=== PATIENT | female | born 1995 ===

== ENCOUNTER 2016-10-05 18:36 | Emergency (ER) | payer MEDICAID ==
[2016-10-05 18:51] VITALS: BP 136/89; PULSE 68; RESP 15; TEMP 98.3; O2SAT 100; BMI 24.5
--- NOTE | 2016-10-05 18:59 | ED PDOC ---
Arrival/HPI - General Chief Complaint: Dental Pain Time Seen by Provider: 10/05/16 18:52 Historian: Patient - History of Present Illness Narrative History of Present Illness (Text): 10/05/16 18:59 This 21 yo female presents to this ED c/o right lower tooth ache x 3 days, and right ear pain x 2 days. Patient stated she has an appointment to see dentist next week. Denies fever, sob, cp, facial rash, sore throat, OATES, dizziness, n/v , or dizziness. Time/Duration: Other (3 days) Quality: Aching Context: Home Past Medical History - Provider Review Nursing Documentation Reviewed: Yes - Infectious Disease Hx of Infectious Diseases: None - Tetanus Immunization Tetanus Immunization: Unknown - Cardiac Hx Cardiac Disorders: No - Pulmonary Hx Respiratory Disorders: No - Neurological Hx Neurological Disorder: No - HEENT Hx HEENT Disorder: No - Renal Hx Renal Disorder: No - Endocrine/Metabolic Hx Endocrine Disorders: No - Hematological/Oncological Hx Blood Disorders: No - Integumentary Hx Dermatological Disorder: No - Musculoskeletal/Rheumatological Hx Musculoskeletal Disorders: Yes (scoliosis) - Gastrointestinal Hx Gastrointestinal Disorders: No - Genitourinary/Gynecological Hx Genitourinary Disorders: No - Psychiatric Hx Psychophysiologic Disorder: No Hx Anxiety: No Hx Substance Use: No - Anesthesia Hx Anesthesia: No Hx Anesthesia Reactions: No Hx Malignant Hyperthermia: No Family/Social History - Physician Review Nursing Documentation Reviewed: Yes Family/Social History: No Known Family HX Smoking Status: Heavy Smoker > 10 Cigarettes Daily Hx Alcohol Use: No Hx Substance Use: No Allergies/Home Meds Allergies/Adverse Reactions: Allergies No Known Allergies Allergy (Verified 10/05/16 18:50) Review of Systems - Review of Systems Constitutional: Normal. absent: Fatigue, Weight Change, Fevers Eyes: Normal ENT: Other (Dental pain, and right ear pain) Respiratory: Normal Cardiovascular: Normal Gastrointestinal: Normal Genitourinary Female: Normal Musculoskeletal: Normal Skin: Normal Neurological: Normal Endocrine: Normal Hemo/Lymphatic: Normal Psychiatric: Normal Physical Exam Vital Signs Temp Pulse Resp BP Pulse Ox 10/05/16 18:51 98.3 F 68 15 136/89 100 Temperature: Afebrile Blood Pressure: Normal Pulse: Regular Respiratory Rate: Normal Appearance: Positive for: Well-Appearing, Non-Toxic, Comfortable Pain Distress: None Mental Status: Positive for: Alert and Oriented X 3 - Systems Exam Head: Present: Atraumatic, Normocephalic Pupils: Present: PERRL Extroacular Muscles: Present: EOMI Conjunctiva: Present: Normal Ears: Present: Normal Canal, Other ((+) right cerumen impaction). No: Erythema , TM Bulging, TM Perf Mouth: Present: Moist Mucous Membranes, Normal Lips, Normal Tounge. No: Drooling, Normal Teeth (dental caries with gum swelling on tooth #30. No dental abscess visualized. No facial erythema) Pharnyx: Present: Normal. No: ERYTHEMA, EXUDATE, TONSILS ENLARGED Neck: Present: Normal Range of Motion Respiratory/Chest: Present: Clear to Auscultation, Good Air Exchange. No: Respiratory Distress, Accessory Muscle Use Cardiovascular: Present: Regular Rate and Rhythm, Normal S1, S2. No: Murmurs Back: Present: Normal Inspection. No: CVA Tenderness Upper Extremity: Present: Normal Inspection, Normal ROM, NORMAL PULSES, Neurovascularly Intact, Capillary Refill < 2s. No: Cyanosis, Edema Lower Extremity: Present: Normal Inspection, NORMAL PULSES, Normal ROM. No: Edema Neurological: Present: GCS=15, CN II-XII Intact, Speech Normal, Motor Func Grossly Intact, Normal Sensory Function, Normal Cerebellar Funct, Norm Deep Tendon Reflexes, Gait Normal, Memory Normal Skin: Present: Warm, Dry, Normal Color. No: Rashes Psychiatric: Present: Alert, Oriented x 3 Medical Decision Making ED Course and Treatment: 10/05/16 20:07 Re-evaluation. Patient feels better. Discussed results and plan with patient who expresses understanding. All questions answered and there is agreement with the plan to discharge home with instructions. Patient stable for discharge. Return if symptoms persist or worsen. Re-evaluation Time: 20:07 Reassessment Condition: Re-examined, Improved - Medication Orders Current Medication Orders: Discontinued Medications Amoxicillin (Amoxil 500 Mg Cap) 500 mg PO STAT STA PRN Reason: Protocol Stop: 10/05/16 19:36 Last Admin: 10/05/16 19:54 Dose: 500 MG Ibuprofen (Motrin Tab) 600 mg PO STAT STA Stop: 10/05/16 19:37 Last Admin: 10/05/16 19:54 Dose: 600 MG MAR Pain/Vitals Document 10/05/16 19:54 RD (Rec: 10/05/16 19:54 RD [id number]) Pain Reassessment Is This A Pain ReAssessment? No Sleep Is patient sleeping during reassessment? No Presence of Pain Presence of Pain Yes - Procedure PROCEDURE NOTE (Text): 10/05/16 20:00 PROCEDURE: CERUMEN REMOVAL Performed by the emergency provider Timeout: A timeout to verify the correct patient, procedure, and site was performed immediately prior to the procedure. Indication: Cerumen impaction Procedure: The cerumen was removed using curette / 100 CC's of warmth NS mixed with Peroxide. Post-procedure: Patient tolerated the procedure well with no immediate complications. The cerumen was removed and TM was visualized. There was no bleeding. Disposition/Present on Arrival - Present on Arrival Any Indicators Present on Arrival: No History of DVT/PE: No History of Uncontrolled Diabetes: No Urinary Catheter: No History of Decub. Ulcer: No History Surgical Site Infection Following: None - Disposition Have Diagnosis and Disposition been Completed?: Yes Diagnosis: Cerumen impaction, Pain due to dental caries Disposition: HOME/ ROUTINE Disposition Time: 20:08 Patient Plan: Discharge Condition: GOOD Discharge Instructions (ExitCare): Dental Caries (ED), Toothache (ED), Cerumen Impaction (ED) Additional Instructions: Call private dentist for follow up visit and for removal of dental caries. Take medication as instructed. Do not use Q-tips. Return nto emergency if pain worsen. Prescriptions: Amoxicillin [Amoxil 500 mg Cap] 500 mg PO TID #20 cap Ibuprofen [Motrin] 600 mg PO Q8 PRN #20 tab PRN Reason: Pain, Severe (8-10) Chlorhexidine 0.12% [Peridex] 15 ml PO BID #1 bottle Forms: WORK NOTE
== END 2016-10-05 20:16 | disposition home or self-care (01) ==
LOC: ED 18:36
DX: K02.9 Dental caries, unspecified (principal); K08.89 Other specified disorders of teeth and supporting structures; H61.21 Impacted cerumen, right ear

== ENCOUNTER 2018-01-20 11:35 | Emergency (ER) | payer MEDICAID, OTHER ==
[2018-01-20 12:08] VITALS: TEMP 98.5; BMI 18.1
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
--- NOTE | 2018-01-20 14:07 | RAD ---
PROCEDURE: Right Hand Radiographs. HISTORY: jammed finger, swelling, COMPARISON: None. FINDINGS: BONES: There is a comminuted fracture of the distal aspect of the 4th middle phalanx extending into the articular surface. JOINTS: Normal. No osteoarthritic changes. SOFT TISSUES: Normal. OTHER FINDINGS: None. IMPRESSION: There is a comminuted fracture of the distal aspect of the 4th middle phalanx extending into the articular surface.
[2018-01-20 15:23] VITALS: BP 125/58; PULSE 89; RESP 18; O2SAT 100
== END 2018-01-20 13:30 | disposition home or self-care (01) ==
LOC: ED 11:35
DX: S62.624A Displaced fracture of middle phalanx of right ring finger, initial encounter for closed fracture (principal); Y04.0XXA Assault by unarmed brawl or fight, initial encounter; Y92.9 Unspecified place or not applicable

== ENCOUNTER 2018-09-25 21:29 | Emergency (ER) | payer MEDICAID, OTHER ==
[2018-09-25 21:29] VITALS: BMI 18.1
[2018-09-25 22:03] VITALS: BP 121/71; PULSE 65; RESP 18; TEMP 98; O2SAT 100
--- NOTE | 2018-09-26 03:31 | ED PDOC ---
Arrival/HPI - General Chief Complaint: Eye Problem Time Seen by Provider: 09/25/18 22:03 Historian: Patient - History of Present Illness Narrative History of Present Illness (Text): 23 y/o female with no significant PMH presents to the ED c/o right eye discomfort since 2 hours [employer]. Pt was walking outside when she experienced a sudden onset of FB sensation after she felt something blow into her eye. She has tried visine eye drops without relief. Associated conjunctival injection, photophobia, and increased tearing. Pt does not wear contact lenses or glasses. Denies fever, chills, vision changes, dizziness, headache, neck pain/stiffness, nausea, vomiting, or any other associated symptoms. Past Medical History - Provider Review Nursing Documentation Reviewed: Yes - Infectious Disease Hx of Infectious Diseases: None - Tetanus Immunization Tetanus Immunization: Unknown - Cardiac Hx Cardiac Disorders: No - Pulmonary Hx Respiratory Disorders: No - Neurological Hx Neurological Disorder: No - HEENT Hx HEENT Disorder: No - Renal Hx Renal Disorder: No - Endocrine/Metabolic Hx Endocrine Disorders: No - Hematological/Oncological Hx Blood Disorders: No - Integumentary Hx Dermatological Disorder: No - Musculoskeletal/Rheumatological Hx Musculoskeletal Disorders: Yes (scoliosis) - Gastrointestinal Hx Gastrointestinal Disorders: No - Genitourinary/Gynecological Hx Genitourinary Disorders: No - Psychiatric Hx Psychophysiologic Disorder: No Hx Anxiety: No Hx Substance Use: No - Anesthesia Hx Anesthesia: No Hx Anesthesia Reactions: No Hx Malignant Hyperthermia: No Family/Social History - Physician Review Nursing Documentation Reviewed: Yes Family/Social History: No Known Family HX Smoking Status: Heavy Smoker > 10 Cigarettes Daily Hx Alcohol Use: No Hx Substance Use: No Allergies/Home Meds Allergies/Adverse Reactions: Allergies No Known Allergies Allergy (Verified 10/05/16 18:50) Review of Systems - Review of Systems Constitutional: Normal. absent: Fevers Eyes: Photophobia, Other (FB sensation). absent: Vision Changes ENT: Normal. absent: Sore Throat, Sinus Congestion Respiratory: Normal. absent: SOB, Cough Cardiovascular: Normal. absent: Chest Pain, Palpitations Gastrointestinal: Normal. absent: Abdominal Pain, Nausea, Vomiting Musculoskeletal: Normal. absent: Neck Pain Skin: Normal. absent: Rash Neurological: Normal. absent: Headache, Dizziness Hemo/Lymphatic: Normal. absent: Adenopathy Psychiatric: Normal Physical Exam Vital Signs Reviewed: Yes Vital Signs Temp Pulse Resp BP Pulse Ox 03/20/19 21:29 98 F 65 18 121/71 100 Temperature: Afebrile Blood Pressure: Normal Pulse: Regular Respiratory Rate: Normal Appearance: Positive for: Well-Appearing, Non-Toxic, Uncomfortable Pain Distress: Mild Mental Status: Positive for: Alert and Oriented X 3 - Systems Exam Head: Present: Atraumatic, Normocephalic Pupils: Present: PERRL Extroacular Muscles: Present: EOMI (without pain) Conjunctiva: Present: Injected (with tearing) Mouth: Present: Moist Mucous Membranes Neck: Present: Normal Range of Motion. No: Meningeal Signs Respiratory/Chest: Present: Clear to Auscultation, Good Air Exchange. No: Respiratory Distress, Accessory Muscle Use Cardiovascular: Present: Regular Rate and Rhythm, Normal S1, S2 Upper Extremity: Present: Normal Inspection, Normal ROM, NORMAL PULSES, Neurovascularly Intact, Capillary Refill < 2s Lower Extremity: Present: Normal ROM Neurological: Present: GCS=15, CN II-XII Intact, Speech Normal, Motor Func Grossly Intact, Normal Sensory Function, Gait Normal Skin: Present: Warm, Dry, Normal Color. No: Rashes Lymphatic: No: Cervical Adenopathy Psychiatric: Present: Alert, Oriented x 3, Normal Insight, Normal Concentration, Normal Affect, Normal Mood Medical Decision Making ED Course and Treatment: Initial Plan: * Fluoroscein stain Fluoroscein stain reveals no areas of uptake or FB. Small FB removed from inside of upper eyelid wit sterile cotton swab. Pt tolerated procedure well without complication. Pt reports complete resolution of symptoms after removal. Will cover for infection with 3 days of prophylactic antibiotic drops. Visual acuity 20/20 in both eyes, 20/15 together. Advised PMD and eye followup. Diagnostic testing results and plan of care discussed with patient. Strict instructions given regarding prescription use, importance of followup, and signs/symptoms to return to ER including vision changes, dizziness, worsening pain, or any other new/worsening symptoms. Pt verbalized understanding of di scussion. Patient is A&Ox3, ambulating with steady gait, with vital signs stable for discharge. Disposition/Present on Arrival - Present on Arrival Any Indicators Present on Arrival: No History of DVT/PE: No History of Uncontrolled Diabetes: No Urinary Catheter: No History of Decub. Ulcer: No History Surgical Site Infection Following: None - Disposition Have Diagnosis and Disposition been Completed?: Yes Diagnosis: Eye foreign body Disposition: HOME/ ROUTINE Disposition Time: 22:30 Patient Plan: Discharge Condition: IMPROVED Discharge Instructions (ExitCare): Foreign Body in Eye Additional Instructions: Eye drops every 6 hours for 3 days Followup with primary doctor within 2 days Return to ER with any new/worsening symptoms Prescriptions: Sulfacetamide Sodium [Bleph 10% Eye Drops] 2 drop RIGHTEYE Q6H #1 bottle Referrals: [facility] [place] - Follow up with primary Sage Todd MD [Staff Provider] - Follow up with primary Jen Mccord MD [Medical Doctor] - Follow up with primary Forms: [employer] (Arabic), WORK NOTE
== END 2018-09-25 22:58 | disposition home or self-care (01) ==
LOC: ED 21:29
DX: T15.91XA Foreign body on external eye, part unspecified, right eye, initial encounter (principal); X58.XXXA Exposure to other specified factors, initial encounter